=== PATIENT | female | born 1995 | race Caucasian/White ===

== ENCOUNTER 2016-08-23 02:31 | Emergency (ER) | payer BC, OTHER ==
[~2016-08-23] VITALS: Ht 165.1 cm; Wt 61.1 kg
[2016-08-23 02:39] VITALS: TEMP 36.8; Ht 165.1 cm; Wt 61.1 kg
--- NOTE | 2016-08-23 03:21 | EMERGENCY ROOM VISIT NOTE ---
History Report prepared by Gideonibcristin: Cash Shrestha Under the Supervision of: Dr. Rosey Franco D.O. First contact with patient: 02:36 Chief Complaint: ABDOMINAL PAIN Stated Complaint: STOMACH PAIN Nursing Triage Summary: Pt reports abdominal pain that started Wednesday. Denies any nausea or vomiting. Pt denies having any contact with someone with recent illness. Last BM was wednesday. History of Present Illness The patient is a 21 year old female who presents to the Emergency Room with complaints of waxing & waning abdominal pain for the past two days. The pain is localized to the epigastrium and periumbilical region. The pain is currently rated 5/10 in severity. The patient's last significant bowel movement was this past Wednesday. She had a very small bowel movement yesterday, but feels that she isn't moving her bowels. She denies any nausea, vomiting, fevers, or chills. The patient had similar pain in the past when she was diagnosed with acid reflux. She hasn't taken anything for pain at this time. The patient denies the possibility of secondary to control use. LNMP was two weeks ago , which was regular. Source of History: patient Onset: two days Position: abdomen Symptom Intensity: 5/10 Timing: waxes/wanes Associated Symptoms: No chills, No fevers, No nausea, No vomiting Review of Systems See HPI for pertinent positives & negatives. A total of 10 systems reviewed and were otherwise negative. Past Medical & Surgical Medical Problems: (1) GERD (gastroesophageal reflux disease) Family History No pertinent family history Social History Smoking Status: Never Smoker Drug Use: none Marital Status: in relationship Occupation Status: [employer] student Current/Historical Medications Scheduled Control Pills ( Control Pills), 1 TAB PO DAILY Multivitamin (Multivitamin), 1 TAB PO DAILY Nitrofurantoin Monohyd Macro (Macrobid), 100 MG PO BID Physical Exam Vital Signs Date Time Temp Pulse Resp B/P Pulse Ox O2 Delivery O2 Flow Rate FiO2 08/23/16 05:44 54 20 101/66 100 Room Air 08/23/16 04:31 61 20 95/66 100 Room Air 08/23/16 02:39 36.8 65 20 109/75 94 Room Air Physical Exam HEENT: Head - normocephalic and atraumatic Pupils are equal, round, and reactive to light. Extraocular eye muscles are intact, and sclera are anicteric. Nose - moist nasal mucosa without discharge. Mouth - moist buccal mucosa. Oropharynx is nonerythematous and there is no tonsillar exudate or edema noted. Neck: Supple; no JVD, nuchal rigidity, cervical lymphadenopathy. Heart: Regular rate and rhythm. There is a normal S1 and S2 with no murmurs, clicks, or gallops appreciated. Lungs: Clear to auscultation bilaterally with no wheezes, rales, or rhonchi. Abdomen: Soft, slight periumbilical and suprapubic abdominal pain with palpation , nondistended, with good bowel sounds. There are no palpable pulsatile masses or hepatosplenomegaly. There is no guarding, rigidity, or rebound noted. Extremities: No evidence of cyanosis, clubbing, or edema. There are easily palpable peripheral pulses. Skin: warm and dry with good turgor and no rashes. Medical Decision & Procedures ER Provider Diagnostic Interpretation: X-ray results as stated below per interpretation by me. OBSTRUCTION SERIES: Significant colonic fecal retention with moderate gas. Laboratory Results 08/23/16 03:45 Red Blood Count 4.10, Mean Corpuscular Volume 87.6, Mean Corpuscular Hemoglobin 30.2, Mean Corpuscular Hemoglobin Concent 34.5, Mean Platelet Volume 10.6, Neutrophils (%) (Auto) 57.1, Lymphocytes (%) (Auto) 34.0, Monocytes (%) (Auto) 6.6, Eosinophils (%) (Auto) 1.8, Basophils (%) (Auto) 0.3, Neutrophils # (Auto) 3.73, Lymphocytes # (Auto) 2.22, Monocytes # (Auto) 0.43, Eosinophils # (Auto) 0.12, Basophils # (Auto) 0.02 08/23/16 03:45 Test 08/23/16 02:50 08/23/16 03:45 Urine Color YELLOW Urine Appearance CLEAR (CLEAR) Urine pH 5.0 (4.5-7.5) Urine Specific Ald[place] 1.021 (1.000-1.030) Urine Protein NEG (NEG) Urine Glucose (UA) NEG (NEG) Urine Ketones TRACE (NEG) Urine Occult Blood 2+ (NEG) Urine Nitrite NEG (NEG) Urine Bilirubin NEG (NEG) Urine Urobilinogen NEG (NEG) Urine Leukocyte Esterase SMALL (NEG) Urine WBC (Auto) 10-30 /hpf (0-5) Urine RBC (Auto) 5-10 /hpf (0-4) Urine Hyaline Casts (Auto) 0 /lpf (0-5) Urine Epithelial Cells (Auto) >30 /lpf (0-5) Urine Bacteria (Auto) 2+ (NEG) Urine Pathogenic Casts /lpf (0) Urine Test NEG (NEG) White Blood Count 6.53 K/uL (4.8-10.8) Red Blood Count 4.10 M/uL (4.2-5.4) Hemoglobin 12.4 g/dL (12.0-16.0) Hematocrit 35.9 % (37-47) Mean Corpuscular Volume 87.6 fL (80-100) Mean Corpuscular Hemoglobin 30.2 pg (25-34) Mean Corpuscular Hemoglobin Concent 34.5 g/dl (32-36) Platelet Count 272 K/uL (130-400) Mean Platelet Volume 10.6 fL (7.4-10.4) Neutrophils (%) (Auto) 57.1 % Lymphocytes (%) (Auto) 34.0 % Monocytes (%) (Auto) 6.6 % Eosinophils (%) (Auto) 1.8 % Basophils (%) (Auto) 0.3 % Neutrophils # (Auto) 3.73 K/uL (1.4-6.5) Lymphocytes # (Auto) 2.22 K/uL (1.2-3.4) Monocytes # (Auto) 0.43 K/uL (0.11-0.59) Eosinophils # (Auto) 0.12 K/uL (0-0.5) Basophils # (Auto) 0.02 K/uL (0-0.2) RDW Standard Deviation 38.9 fL (36.4-46.3) RDW Coefficient of Variation 12.1 % (11.5-14.5) Immature Granulocyte % (Auto) 0.2 % Immature Granulocyte # (Auto) 0.01 K/uL (0.00-0.02) Anion Gap 10.0 mmol/L (3-11) Est Creatinine Clear Calc Drug Dose 113.4 ml/min Estimated GFR () 142.5 Estimated GFR (Non- 123.0 BUN/Creatinine Ratio 12.0 (10-20) Calcium Level 8.5 mg/dl (8.5-10.1) Total Bilirubin 0.2 mg/dl (0.2-1) Direct Bilirubin < 0.1 mg/dl (0-0.2) Aspartate Amino Transf (AST/SGOT) 16 U/L (15-37) Alanine Aminotransferase (ALT/SGPT) 25 U/L (12-78) Alkaline Phosphatase 64 U/L (45-117) Total Protein 7.4 gm/dl (6.4-8.2) Albumin 3.7 gm/dl (3.4-5.0) Lipase 105 U/L (73-393) Laboratory results per my review. Medications Administered Medications (Trade) Dose Ordered Sig/Percy Route Start Time Stop Time Status Last Admin Dose Admin Nitrofurantoin Macrocrystals (Macrobid Cap) 100 mg ONE ONCE PO 08/23/16 05:45 08/23/16 05:46 DC 08/23/16 05:43 100 MG Procedure Medications administered include Macrobid PO. ED Course 0245: The patient was evaluated by the [facility]. 0255: Past medical records reviewed. The patient was evaluated in room A10. A complete history and physical exam was performed. An IV lock was initiated and labs are drawn as above. Patient went for an obstruction series as described above. 0405: The patient is resting comfortably at this time. Her pain has subsided. I reviewed the laboratory studies with her. 0525: Went over the X-ray results. She is feeling much better. I instructed her to take milk of magnesia for two days then to start MiraLAX. She will also be started on antibiotics for her urine. 0545: Macrobid 100 mg PO. 0545: Upon reevaluation, the patient was feeling better. I discussed the findings with her. She verbalized understanding and agreement of the treatment plan. The patient is ready for discharge. Medical Decision The patient is a 21 year old female who presents to the ED with abdominal pain. Differential diagnosis includes UTI, GERD, ovarian torsion, , IBSC, bowel impaction, appendicitis. Laboratory interpretation: normal white count, stable H&H, normal renal function and lipase, normal LFTs, urine was negative. Urinalysis had trace ketones, 2+ blood, 2+ bacteria, 10-30 white blood cells, small leukocyte esterase. This is a 21-year-old female patient presents to the emergency department with 24 hour history of periumbilical abdominal pain. The patient's symptoms have resolved on their own. X-ray shows moderate constipation. Urinalysis shows evidence of a urinary tract infection. I've encouraged patient use milk of magnesia and MiraLAX for the constipation. I will start her on an antibiotic for a UTI. The urine will be sent for culture. The patient is resting comfortably at this time. She is asymptomatic. I have asked her to follow-up with [facility] if the symptoms persist. Impression Primary Impression: Constipation Additional Impression: UTI (urinary tract infection) Scribe Attestation The scribe's documentation has been prepared under my direction and personally reviewed by me in its entirety. I confirm that the note above accurately reflects all work, treatment, procedures, and medical decision making performed by me. Departure Information Dispostion Home / Self-Care Prescriptions Nitrofurantoin Monohyd Macro (MACROBID) 100 Mg Cap 100 MG PO BID, #10 CAP Prov: Rosey Franco D.O. 08/23/16 Referrals [facility] (PCP) Forms HOME CARE DOCUMENTATION FORM, IMPORTANT VISIT INFORMATION, My [facility] Patient Instructions A Signature Page, Constipation, UTI Additional Instructions Rest. Take plenty of clear liquids Take milk of magnesia for next 2 days then start miralax Take macrobid twice a day for 5 days Follow up with PCP if pain persists
[2016-08-23 03:27] LABS: URINE APPEARANCE CLEAR (CLEAR); URINE BILIRUBIN NEG (NEG); URINE COLOR YELLOW; URINE EPITHELIAL CELL AUTO >30 /lpf (0-5); URINE NITRITE NEG (NEG); URINE SPECIFIC GRAVITY 1.021 (1.000-1.030); UROBILINOGEN NEG (NEG)
[2016-08-23 03:29] LABS: MANUAL MICROSCOPIC REQUIRED? NO; REVIEW REQ? YES
[2016-08-23] MEDS ORDERED: BCPILLS PO (03:42)
[2016-08-23] MEDS ORDERED: MULT-506 PO (03:44)
[2016-08-23 03:54] LABS: BASO % 0.3 %; BASO ABS # 0.02 K/uL (0-0.2); COMPLETE YES; EOS % 1.8 %; HEMATOCRIT 35.9 % (37-47); IG% 0.2 %; LYMPH ABS # 2.22 K/uL (1.2-3.4); MEAN CELL VOLUME 87.6 fL (80-100); MEAN CORPUSCULAR HEMOGLOBIN 30.2 pg (25-34); MEAN CORPUSCULAR HGB CONC 34.5 g/dl (32-36); MEAN PLATELET VOLUME 10.6 fL (7.4-10.4); MONO % 6.6 %; NEUT % 57.1 %; PLATELET COUNT 272 K/uL (130-400); WHITE BLOOD COUNT 6.53 K/uL (4.8-10.8)
[2016-08-23 04:14] LABS: ALT/SGPT 25 U/L (12-78); AST/SGOT 16 U/L (15-37); BLOOD UREA NITROGEN 8 mg/dl (7-18); CALCIUM 8.5 mg/dl (8.5-10.1); CARBON DIOXIDE 26 mmol/L (21-32); CHLORIDE 106 mmol/L (98-107); GLUCOSE 80 mg/dl (70-99); POTASSIUM 4.1 mmol/L (3.5-5.1); SODIUM 142 mmol/L (136-145)
[2016-08-23 04:16] LABS: ALKALINE PHOSPHATASE 64 U/L (45-117)
[2016-08-23] MEDS ORDERED: NITR1CAP16 PO (05:37)
[2016-08-23 05:44] VITALS: BP 101/66; PULSE 54; O2SAT 100
[2016-08-23] MEDS ORDERED: NITROFURANTOIN MONOHYDRATE 100 MG CAP PO ONE (05:45)
--- NOTE | 2016-08-23 08:19 | DIAGNOSTIC IMAGING REPORT ---
CHEST AND ABDOMEN 2 VIEWS HISTORY: eval for constipation. Generalized abdominal pain. COMPARISON: FINDINGS: The lungs are clear. The cardiomediastinal silhouette is within normal limits. There is no pneumoperitoneum or pneumatosis. The bowel gas pattern is unremarkable. No evidence for bowel obstruction. No pathologic calcifications. Moderate well-formed stool seen throughout the colon rectum. IMPRESSION: No acute cardiopulmonary process. No evidence for bowel obstruction. Moderate well-formed stool seen throughout the colon and rectum. Electronically signed by: Charles Clements M.D. 08/23/2016 8:18 AM Dictated Date/Time: 08/23/2016 8:16 AM
== END 2016-08-23 05:55 | disposition home or self-care (01) ==
LOC: C.EDB 02:32 → C.EDA 05:55
DX: K59.00 Constipation, unspecified (principal); N39.0 Urinary tract infection, site not specified